=== PATIENT | male | born 1955 | race Caucasian/White ===

== ENCOUNTER 2018-04-09 22:21 | Inpatient (IN) | payer OTHER ==
[~2018-04-09] VITALS: Ht 172.7 cm; Wt 88.5 kg
--- NOTE | 2018-04-09 22:43 | ED DYSPNEA/ASTHMA COMPLAINT ---
History of Present Illness General Chief Complaint: Chest Pain Stated Complaint: COUGHING UP FLUID/PHLEGM,CP,SOB Source: patient, old records Exam Limitations: no limitations Vital Signs & Intake/Output Vital Signs & Intake/Output Vital Signs Date Time Temp Pulse Resp B/P B/P Pulse O2 O2 Flow FiO2 Mean Ox Delivery Rate 04/09 2330 98.4 102 21 136/95 92 Room Air 04/09 2246 92 04/09 2233 98.9 105 20 160/100 95 Allergies Coded Allergies: NO KNOWN ALLERGIES (01/21/12) Reconcile Medications Aspirin (Aspirin*) 81 MG TAB.CHEW 1 TAB PO DAILY HEART HEALTH (Reported) Atorvastatin Calcium 40 MG TABLET 1 TAB PO DAILY CHOLESTEROL (Reported) Azithromycin 500 MG TABLET 1 TAB PO DAILY BRONCHITIS . Budesonide/Formoterol Fumarate (Symbicort 160-4.5 Mcg Inhaler) 160 MCG-4.5 MCG/ ACTUATION HFA.AER.AD 2 PUF INH BID copd Losartan Potassium 50 MG TABLET 1 TAB PO DAILY BP (Reported) Omeprazole 40 MG CAPSULE.DR 1 CAP PO DAILY GERD . Prednisone 10 MG TABLET 1 TAB PO AD taper 4 TABS X3DAYS, 3 TABS X3DAYS, 2 TABS X3DAYS, 1 X3DAYS. Tiotropium Bovey (Spiriva) 18 MCG CAP.W.DEV 1 CAP INH DAILY COPD . Triage Note: RECEIVED 63 YO MALE WITH HX OF MN X 2, C/O PRODUCTIVE COUGH, WHEEZING AND SOB SINCE THURSDAY NIGHT. PT SEEN IN FAST TRACK THURSDAY AND PRESCRIBED AMOXICILLIN. PT REPORTS CHEST PAIN ACCROSS CHEST SINCE THURSDAY NIGHT. EXP WHEEZES BILATERALLY, O2 SATS 92%, MILD SHORTNESS O BREATH NOTED. Triage Nurses Notes Reviewed? yes HPI: 63M PMH COPD, HTN, history of chest pain with cardiac cath negative, presenting with 5 days of progressive shortness of breath, cough with thick yellow sputum, and pleuritic chest pain. Active smoker, 5cig/day. Symptoms have been worsening despite being started on Amoxicillin by PCP. Today is severely SOB, hoarse, pain with deep inspiration and cough, fever. He denies substernal chest pain, palpitations, lightheadedness, dizziness, sore throat, abdominal pain, diarrhea, dysuria. No sick contacts or recent travel. Past History Travel History Traveled to [place] past 21 day No Medical History Any Pertinent Medical History? see below for history Neurological: NONE EENT: NONE Cardiovascular: hypertension, hyperlipidemia, myocardial infarction Respiratory: NONE Gastrointestinal: NONE Hepatic: NONE Renal: NONE Musculoskeletal: NONE Psychiatric: NONE Endocrine: NONE Blood Disorders: NONE Cancer(s): NONE Tetanus Vaccine: 01/21/12 Surgical History Surgical History: ANGIOGRAM Psychosocial History What is your primary language R[place]an Tobacco Use: Quit >30 days ago Family History Hx Contributory? No Review of Systems Review of Systems Constitutional: Reports: no symptoms. EENTM: Reports: no symptoms. Respiratory: Reports: no symptoms. Cardiovascular: Reports: no symptoms. GI: Reports: no symptoms. Genitourinary: Reports: no symptoms. Musculoskeletal: Reports: no symptoms. Skin: Reports: no symptoms. Neurological/Psychological: Reports: no symptoms. Hematologic/Endocrine: Reports: no symptoms. Immunologic/Allergic: Reports: no symptoms. All Other Systems: Reviewed and Negative Physical Exam Physical Exam General Appearance: well developed/nourished, mild distress Head: atraumatic, normal appearance Eyes: Bilateral: normal appearance. Ears, Nose, Throat: hearing grossly normal Neck: normal inspection, full range of motion Respiratory: wheezing Cardiovascular: regular rate/rhythm Gastrointestinal: soft, non-tender Extremities: normal inspection, normal range of motion Neurologic/Psych: awake, alert, oriented x 3, normal mood/affect Skin: intact, normal color, warm/dry Core Measures ACS in differential dx? No CVA/TIA Diagnosis No Sepsis Present: No Sepsis Focused Exam Completed? No Progress Differential Diagnosis: asthma, AMI, bronchitis, costochondritis, CHF, COPD, pericarditis, pneumonia, unstable angina Plan of Care: Orders Procedure Date/time Status BLOOD CULTURE 04/09 2242 Active TROPONIN LEVEL 04/09 2242 Active COMPREHENSIVE METABOLIC PANEL 04/09 2242 Active CBC WITHOUT DIFFERENTIAL 04/09 2242 Complete B-TYPE NATRIURETIC PEP (BNP) 04/09 2242 Active EKG 04/09 2230 Active Laboratory Tests 04/09/18 2320: Anion Gap 12, Estimated GFR > 60, BUN/Creatinine Ratio 16.7, Glucose 121 H, Calcium 9.5, Total Bilirubin 0.4, AST 41, ALT 42, Alkaline Phosphatase 105, Troponin I Pending, Zpt-R-Xhunmuyoydg Pept Pending, Total Protein 7.1, Albumin 4.1, Globulin 3.0, Albumin/Globulin Ratio 1.4, CBC w Diff NO MAN DIFF REQ, RBC 5.34, MCV 91.8, MCH 30.7, MCHC 33.4, RDW 14.1, MPV 8.9, Gran % 75.3 H, Lymphocytes % 15.8 L, Monocytes % 5.4, Eosinophils % 3.4, Basophils % 0.1, Absolute Granulocytes 5.6, Absolute Lymphocytes 1.2, Absolute Monocytes 0.4, Absolute Eosinophils 0.3, Absolute Basophils 0 Microbiology 04/09 2320 BLOOD: Blood Culture - RECD 04/09 2310 BLOOD: Blood Culture - RECD Diagnostic Imaging: Viewed by Me: Radiology Read. Discussed w/RAD: Radiology Read. 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 Cough. Fever. COMPARISON: Chest x-ray 12/09/2016. TECHNIQUE: 2 views of the chest were obtained. FINDINGS: Hyperinflation of lungs with flattening of the diaphragm. There is no acute abnormality. No infiltrate. No pulmonary vascular congestion or pleural effusion. Heart size is normal. The cardiac and the mediastinal contours are normal. IMPRESSION: No acute abnormality. DICTATED BY: Simon Odonnell MD DATE/TIME DICTATED:04/09/182325 MANAGER SCIENTIFIC:RAJ DATE/TIME TRANSCRIBED:04/09/182325 CONFIDENTIAL, DO NOT COPY WITHOUT APPROPRIATE AUTHORIZATION. <Electronically signed in Other Vendor System> SIGNED BY: Simon Odonnell MD 04/09/182329 Initial ED EKG: normal sinus rhythm, no ST T wave changes Departure Departure Disposition: STILL A PATIENT Condition: Stable Clinical Impression Primary Impression: Community acquired pneumonia Qualifiers: Laterality: right Lung location: lower lobe of lung Qualified Code: J18.1 - Lobar pneumonia, unspecified organism Secondary Impressions: COPD exacerbation Referrals: Renny Millan DO (PCP/Family) Departure Forms: Customer Survey General Discharge Information Prescriptions: Current Visit Scripts Prednisone 1 TAB PO AD #30 TAB 4 TABS X3DAYS, 3 TABS X3DAYS, 2 TABS X3DAYS, 1 X3DAYS. Omeprazole 1 CAP PO DAILY #30 CAP . Tiotropium Bovey (Spiriva) 1 CAP INH DAILY #30 CAP . Azithromycin 1 TAB PO DAILY #3 TAB . Budesonide/Formoterol Fumarate (Symbicort 160-4.5 Mcg Inhaler) 2 PUF INH BID #1 INHAL Admission Note Spoke With: Doyle OQUENDO,[facility] Documentation of Exam: Documentation of any treatments & extenuating circumstances including Concerns Regarding Discharge (functional status, medication knowledge or non-compliance, living conditions, etc.) that warrant an admission rather than observation: PNEUMONIA, COPD EXACERBATION, HYPOXIA, WILL ADMIT FOR IV ANTIBIOTICS, IV STEROIDS, PULMONARY CONSULT Critical Care Note Critical Care Note Critical Care Time: non-applicable
[2018-04-09] MEDS ORDERED: ATORVASTATIN CA40 M1 PO (22:54)
[2018-04-09] MEDS ORDERED: LOSARTAN POTASS50 M1 PO (22:55)
[2018-04-09] MEDS ORDERED: AMOX-CLAV 875-1 EACH PO (22:55)
--- NOTE | 2018-04-09 23:30 | RADIOLOGY REPORT ---
EXAMINATION: XR CHEST CLINICAL INFORMATION: Left lower lobe bronchi. Cough. Fever. COMPARISON: Chest x-ray 12/09/2016. TECHNIQUE: 2 views of the chest were obtained. FINDINGS: Hyperinflation of lungs with flattening of the diaphragm. There is no acute abnormality. No infiltrate. No pulmonary vascular congestion or pleural effusion. Heart size is normal. The cardiac and the mediastinal contours are normal. IMPRESSION: No acute abnormality.
[2018-04-09 23:45] LABS: ABSOLUTE BASOPHIL COUNT 0 /CUMM (0.0-0.2); ABSOLUTE EOSINOPHIL COUNT 0.3 /CUMM (0.0-0.7); ABSOLUTE GRANULOCYTE CT 5.6 /CUMM (1.4-6.5); ABSOLUTE LYMPH COUNT 1.2 /CUMM (1.2-3.4); ABSOLUTE MONOCYTE COUNT 0.4 /CUMM (0.10-0.60); BASOPHIL % 0.1 % (0.0-2.0); EOSINOPHIL % 3.4 % (0-5); GRANULOCYTE % 75.3 % (42.2-75.2); MEAN CORPUSCULAR HGB 30.7 PG (27.0-31.0); MEAN CORPUSCULAR HGB CONC 33.4 G/DL (33.0-37.0); MEAN CORPUSCULAR VOLUME 91.8 FL (80.0-94.0); MEAN PLATELET VOLUME 8.9 FL (7.4-10.4); PLATELET COUNT 242 /CUMM (130-400); RBC DISTRIBUTION WIDTH 14.1 % (11.5-14.5); RED BLOOD CELL CT 5.34 /CUMM (4.70-6.10); WHITE BLOOD CELL COUNT 7.4 /CUMM (4.8-10.8)
--- NOTE | 2018-04-10 00:28 | History & Physical ---
Gerson Nguyen MD 04/10/18 0027: General Information and HPI MD Statement: I have seen and personally examined FISH FLETCHER and documented this H&P. The patient is a 63 year old M who presented with a patient stated chief complaint of cough and shortness of breath. Source of Information: patient, family, old records Exam Limitations: no limitations History of Present Illness: 63 year old male with past medical history significant for moderate to severe COPD not on home oxygen (PFT 2012 Dr. Brown), CAD with h/o silent AL, reportedly negative cardiac catheterization (nonobstructive CAD?), abnormal stress test in 2015 with diffuse hypokinesis, HTN, HLD, and smoking presents with complaints of worsening upper respiratory infection with productive cough and negative chest x-ray, admitted for COPD exacerbation. The patient's symptoms first began approximately one week ago as a scratchy throat and over next couple day worsened to a prooductive cough with thick yellow sputum. The patient took Coricidin otc at home without improvement and was placed on Augmentin three days prior to arrival. His sympytoms continued to worsens despite antibiotics and he had worsening exertional shortness of breath. He also developed fevers and chills. The patient states he gets exertional frontal chest pain he describes as sharp and burning, non radiating, and that is worsening recently with his cough and dyspnea. He also reports antibiotic associated diarrhea, approximately four episodes a day. He is noncompliant with all his home medications and a current smoker. He typically smokes a pack a day but since he has become sick, he cut down to 1/4 pack per day. His and daughter were both sick with similiar symptoms prior to him, both have improved, one on and the other without antibiotic treatment. In the ED, he was treated with aspirin, solumedrol, and nebulized albuterol and ipatropium and admitted for COPD exacerbation. Allergies/Medications Allergies: Coded Allergies: NO KNOWN ALLERGIES (01/21/12) Home Med list Amoxicillin/Clavulanate Potass (Amox-Clav 875-125 MG Tablet) 875 MG-125 MG TABLET 1 TAB PO BID ABX (Reported) Atorvastatin Calcium 40 MG TABLET 1 TAB PO DAILY CHOLESTEROL (Reported) Losartan Potassium 50 MG TABLET 1 TAB PO DAILY BP (Reported) Compliance With Home Meds: POOR Past History Travel History Traveled to [place] past 21 day No Medical History Neurological: NONE EENT: NONE Cardiovascular: hypertension, hyperlipidemia, myocardial infarction Respiratory: NONE Gastrointestinal: NONE Hepatic: NONE Renal: NONE Musculoskeletal: NONE Psychiatric: NONE Endocrine: NONE Blood Disorders: NONE Cancer(s): NONE Tetanus Vaccine: 01/21/12 Surgical History Surgical History: hernia repair-inguinal, ANGIOGRAM Past Family/Social History Family History Relations & Conditions if any MOTHER FH: emphysema Psychosocial History Smoking Status: Current Everyday Smoker ETOH Use: heavy use Illicit Drug Use: denies illicit drug use Functional Ability ADLs Independent: dressing, eating, toileting, bathing. Ambulation: independent IADLs Independent: shopping, housework, finances, food prep, telephone, transportation , medication admin. Review of Systems Review of Systems Constitutional: Reports: chills, fever, malaise. EENTM: Reports: throat pain. Cardiovascular: Reports: chest pain. Denies: palpitations, peripheral edema. Respiratory: Reports: cough, orthopnea, short of breath, sputum production, wheezing. GI: Reports: diarrhea. Denies: abdominal pain, nausea, vomiting. Genitourinary: Denies: dysuria, frequency. Musculoskeletal: Reports: no symptoms. Skin: Reports: no symptoms. Neurological/Psychological: Reports: no symptoms. Hematologic/Endocrine: Reports: no symptoms. Immunologic/Allergic: Reports: no symptoms. All Other Systems: Reviewed and Negative Exam & Diagnostic Data Last 24 Hrs of Vital Signs/I&O Vital Signs Date Time Temp Pulse Resp B/P B/P Pulse O2 O2 Flow FiO2 Mean Ox Delivery Rate 04/10 0218 98.7 83 20 134/76 93 Room Air 04/10 0109 99.0 87 18 137/100 95 Room Air 04/09 2330 98.4 102 21 136/95 92 Room Air 04/09 2246 92 / 2233 98.9 105 20 160/100 95 Intake & Output 04/10 0800 04/10 0000 04/09 1600 Intake Total 0 Output Total Balance 0 Intake, Oral 0 Patient 86.183 kg 85.729 kg Weight Weight Reported by Patient Measurement Method Physical Exam General Appearance Alert, Oriented X3, Cooperative, No Acute Distress Cardiovascular Regular Rate, Normal S1, Normal S2, No Murmurs Lungs diffuse expiratory wheezing Abdomen Normal Bowel Sounds, Soft, No Tenderness, large midline ventral hernia Extremities No Clubbing, No Cyanosis, No Edema, Normal Pulses Last 24 Hrs of Labs/Ag: Laboratory Tests 04/09/180: Anion Gap 12, Estimated GFR > 60, BUN/Creatinine Ratio 16.7, Glucose 121 H, Calcium 9.5, Total Bilirubin 0.4, AST 41, ALT 42, Alkaline Phosphatase 105, Troponin I 0.02, Dby-A-Csrvgpquyjk Pept 243 H, Total Protein 7.1, Albumin 4.1, Globulin 3.0, Albumin/Globulin Ratio 1.4, CBC w Diff NO MAN DIFF REQ, RBC 5.34, MCV 91.8, MCH 30.7, MCHC 33.4, RDW 14.1, MPV 8.9, Gran % 75.3 H, Lymphocytes % 15.8 L, Monocytes % 5.4, Eosinophils % 3.4, Basophils % 0.1, Absolute Granulocytes 5.6, Absolute Lymphocytes 1.2, Absolute Monocytes 0.4, Absolute Eosinophils 0.3, Absolute Basophils 0 Microbiology 04/09 2320 BLOOD: Blood Culture - RECD 04/09 2310 BLOOD: Blood Culture - RECD Diagnostic Data EKG Results sinus rhythm with old LBBB CXR Results Hyperinflation of lungs with flattening of the diaphragm. There is no acute abnormality. No infiltrate. No pulmonary vascular congestion or pleural effusion. Heart size is normal. The cardiac and the mediastinal contours are normal. Assessment/Plan Assessment: 63 year old male with past medical history significant for moderate to severe COPD not on home oxygen (PFT 2012 Dr. Brown), CAD with h/o silent AL, reportedly negative cardiac catheterization (nonobstructive CAD?), abnormal stress test in 2014 with diffuse hypokinesis, HTN, HLD, and smoking presents with complaints of worsening upper respiratory infection with productive cough and negative chest x-ray, admitted for COPD exacerbation. COPD exacerbation: Recent sick contacts Afebrile without leukocytosis Symptoms worsening (cough/exertional dyspnea) despite outpatient amoxicillin Chest x-ray hyperinflation emphysematous changes without infiltrate/pneumonia Received solumedrol 125mg in the ED, continue 40mg iv q8h TRC evaluation Sputum culture Azithromycin 500mg x 5 days Continue nebulized albuterol and ipatropium Currently not hypoxic on room air Start spiriva, symbicort and mucinex 600mg po bid Counseled on smoking cessation, offered nicotine replacement therapy Consult pulmonology with Dr. Brown CAD with angina: Patient has chronic exertional dyspnea and frontal chest pain, currently exacerbated by his URI and cough First troponin negative, check second troponin and EKG, although ischemic changes are difficult to detect given his LBBB Exercise nuclear stress test/Echocardiogram 2014 Abnormal study demonstrating fixed perfusion abnormalities as described above involving the inferior, anteroseptal, and apical ponce. No reversible perfusion abnormalities are noted. There is diffuse left ventricular hypokinesis which is most severe in the regions of the fixed perfusion abnormalities. The left ventricular chamber is mildly dilated and the left ventricular ejection fraction is moderately depressed. Normal left ventricular wall thickness. Left ventricular ejection fraction is estimated at 40-45%. Abnormal septal motion consistent with conduction defect. Stage 1 diastolic dysfunction. Mild left atrial dilatation. Patient has poor compliance and is not on optimal medical therapy Restart losartan, aspirin, and atorvastatin Patient should be started on beta shahla and aldactone given his exertional symptoms Consider long acting nitrate Reports orthopnea, proBNP 243, no pulmonary edema on chest x-ray Consider cardiology consultation if chest pain continues or develops elevated troponin HTN: Continue losartan HLD: Continue atorvastatin Heart healthy diet DVT ppx-ALPS, lovenox 40mg subcutaneous daily DNR/DNI As Ranked By This Provider Problem List: 1. COPD exacerbation Core Measures/Misc (07/19) Acute Coronary Syndrome ACS Diagnosis: No Congestive Heart Failure Congestive Heart Failure Diagnosis No Cerebrovascular Accident CVA/TIA Diagnosis: No VTE (View Protocol) VTE Risk Factors Age>40 No Mechanical VTE Prophylaxis d/t N/A MechProphylax Ordered No VTE Pharm Prophylaxis d/t NA PharmProphylax ordered Sepsis (View protocol) Sepsis Present: No If YES complete Sepsis Event Note If YES complete Sepsis Event Note Alethea OQUENDO,Joleen 04/10/18 0029: Core Measures/Misc (07/19) Sepsis (View protocol) If YES complete Sepsis Event Note If YES complete Sepsis Event Note Resident Review Statement Resident Statement: examined this patient, discussed with summer internship, agreed with summer internship, discussed with family, reviewed EMR data (avail), discussed with nursing , discussed with case mgmt, reviewed images, amended to note Other Findings: Patient is a 63 YO M with PMH significant for HTN, HLD, AL (EF 40-45% ), abnormal stress test 2014 with hypokinesis, COPD (diagnosed 2012) presented to [facility] with complaints of productive cough, wheezing, SOB since last 5 days. Evaluated 3days ago and prescribed amoxicillin, with eventual progression of the illness. He started experiencing productive phlegm with severe shortness of breath, hoarseness of voice today prompting him to come to ER. He smokes 1pack per day reduced to 5 cigars per day for the past few days. Not compliant with medications/follow up. VS at presentation Tmax 99, HR 105, BP 160/100mmHg, 92 on RA. Physical exam significant for diffuse wheezing, normal heart sounds, distended abdomen with hepatosplenomegaly. Labs are significant for lymphocytes, chem panel unremarkable, trop 0.02, UA pending. CXR shows hyperinflation of lungs with flattening of diaphragm. Problem list 1. COPD exacerbation - viral illness precipitating 2. HTN 3. AL in the past with Low EF and abnormal stress test 4. Regular alcohol consumption 5. Active smoking 6. HLD Plan Admit to general medicine floor COPD exacerbation IV steroids, IV azithromycin, follow up cultures. Consult . Smoking cessation counselling. Nicotine patch. Mucinex BID. Stable angina Patient had h/o AL and abnormal stress test. follows , very noncomplaint. Not taking any meds. He had chest pain - burning like, worse with exertion at baseline. HTN: Continue Losartan HLD: continue Atrovastatin Regular alcohol consumption - Diagnostic CIWA, if high start ativan protocol Smoking: Nicotine patch. DVT prophylaxis SC heparin code status DNR/DNI Doyle OQUENDO, [facility] 04/10/18 0322: Core Measures/Misc (07/19) Sepsis (View protocol) If YES complete Sepsis Event Note If YES complete Sepsis Event Note Attending MD Review Statement Attending Statement Attending MD Statement: examined this patient, discuss w/resident/PA/FISCAL SERVICES DIRECTOR, agreed w/resident/PA/FISCAL SERVICES DIRECTOR, discussed with family, reviewed images, amended to note Attending Assessment/Plan: 63 yo M with h/o HTN, AL x 2, current smoker, COPD, chronic systolic and diastolic heart failure, is here for evaluation of productive cough, exertional dyspnea and wheezing for the past 6 days. He went to an Urgent care 2 days ago, was prescribed Amoxicillin however his dyspnea worsened and he also developed diarrhea. He reports sharp pain under bilateral breast with deep inspiration and coughing. Sujective fevers+. No sick contacts or recent travel. Patient had a PFT in 2012 which showed moderate to severe obstructive lung disease with a partially reversible component, mild airtrapping and hyperinflation. He used to follow with Dr. Kothari but has not done so in over 2 yrs. He is noncompliant with his medications as well. He has a h/o AL x 2, underwent cardiac cath which he reports was normal, possible nonobstructive CAD. He had stress test done in 2014 which showed fixed perfusion abnormalities, with diffuse left ventricular hypokinesis, left ventricular chamber mildly dilated and left ventricular systolic fraction is moderately depressed. Patient is supposed to follow up with Dr. Vasques. Patient continues to smoke cigarettes. He also drinks about 4-6 beers atleast 5 times a week. He has never been through a withdrawal or DT's. Vitals: Tmax 99, HR 80-100's, BP 136/95, sats 92-95% RA. Exam: AAO, in mild respiratory distress, mucosa moist, Chest b/l diffuse wheezing with prolonged expiratory phase, Heart S1S2 regular, ?systolic murmur, Abd soft, NT, LE no edema. Labs: no leukocytosis, glucose 121, trop 0.02. CXR: hyperinflation of lungs with flattening of the diaphragm, no consolidation. EKG: sinus tachycardia, LBBB (old), Qtc 466, no acute changes. Echo (2014): EF 40-45%, stage 1 diastolic dysfunction, abnormal septal motion consistent with conduction defect. Assessment and plan: 1. Acute bacterial bronchitis 2. COPD with acute exacerbation 3. Smoker 4. History of AL with ?normal cardiac cath 5. History of congestive heart failure 6. Alcohol dependence 7. Medication noncompliance - Admit to General medicine - TRC nebs scheduled and PRN albuterol with ipratropium - Sputum culture - IV solumedrol 40 Q8 followed by prednisone taper - IV azithro for 5 days - Pulm consult (Dr. Kothari) - Smoking cessation counseling, nicotine patch - Add mucinex BID - Resume aspirin, losartan and atorvastatin - Repeat EKG and troponin in AM - Outpatient follow up with Dr. Vasques (Cardiology) - Check lipid panel, TSH, free T4, HbA1c - Maintain on CIWA protocol, no ativan for now DVT ppx Lovenox. DNR/I.
--- NOTE | 2018-04-10 01:53 | Admission Certification ---
Admission Certification Certification Statement - As attending physician, I certify that at the time of - admission, based on clinical presentation, severity of - symptoms, need for further diagnostic testing and - therapeutic interventions, and risk of adverse outcomes - without in-hospital treatment, in my clinical assessment, - this patient requires an acute hospital stay for a minimum - of two nights or longer. I have also considered psychsocial - factors such as support system, advanced age, financial - issues, cognitive issues, and failed out-patient treatments, - past re-admission history, safety of patient, and lack of - compliance as applicable. Specific rationale supporting this admission is: COPD exacerbation
[2018-04-10 02:18] VITALS: BP 134/76
[2018-04-10 06:20] VITALS: BP 140/82
[2018-04-10 08:36] LABS: ABSOLUTE BASOPHIL COUNT 0 /CUMM (0.0-0.2); ABSOLUTE EOSINOPHIL COUNT 0 /CUMM (0.0-0.7); ABSOLUTE GRANULOCYTE CT 5.6 /CUMM (1.4-6.5); ABSOLUTE LYMPH COUNT 0.4 /CUMM (1.2-3.4); ABSOLUTE MONOCYTE COUNT 0 /CUMM (0.10-0.60); BASOPHIL % 0 % (0.0-2.0); EOSINOPHIL % 0.1 % (0-5); GRANULOCYTE % 92.4 % (42.2-75.2); HEMATOCRIT 45.5 % (42-52); MEAN CORPUSCULAR HGB 30.6 PG (27.0-31.0); MEAN CORPUSCULAR HGB CONC 33.6 G/DL (33.0-37.0); MEAN PLATELET VOLUME 9.5 FL (7.4-10.4); PLATELET COUNT 214 /CUMM (130-400); RBC DISTRIBUTION WIDTH 14.1 % (11.5-14.5)
--- NOTE | 2018-04-10 09:13 | PN- Att Addend ---
Attending Addendum Attending Brief Note Patient seen and examined. Lying in bed not in acute distress. Continues complain of shortness of breath or cough. Reports small improvement compared to presentation. Admits to cough. Denies chest pain. Denies palpitations. Vital Signs Date Time Temp Pulse Resp B/P B/P Pulse O2 O2 Flow FiO2 Mean Ox Delivery Rate 04/10 825 90 150/80 / 0620 98.4 75 20 140/82 92 Room Air 04/10 0218 98.7 83 20 134/76 93 Room Air 04/10 0109 99.0 87 18 137/100 95 Room Air 04/09 2330 98.4 102 21 136/95 92 Room Air 04/09 2246 92 04/09 2233 98.9 105 20 160/100 95 General appearance: Well-developed and not in any acute distress. HEENT: Anicteric, no pallor, pupils equal and reactive. Neck: Supple with no jugular venous distention. Heart: S1-S2 regular with no audible murmur. Lungs: Diminished breath sounds bilaterally with diffuse rhonchi. Abdomen: Nondistended with normal bowel sounds. Soft, nontender with no palpable masses. Extremities: No pedal edema. No cyanosis. Skin: Intact Laboratory Tests 04/10/18 0712: Anion Gap 11, Estimated GFR > 60, BUN/Creatinine Ratio 16.3, Troponin I 0.03, CBC w Diff Pending, WBC Pending, RBC Pending, Hgb Pending, Hct Pending, MCV Pending, MCH Pending, MCHC Pending, RDW Pending, Plt Count Pending, MPV Pending 04/10/18 0530: Urine Color YEL, Urine Clarity CLEAR, Urine pH 6.0, Ur Specific [place] 1.015, Urine Protein NEG, Urine Ketones NEG, Urine Nitrite NEG, Urine Bilirubin NEG, Urine Urobilinogen 0.2, Ur Leukocyte Esterase TRACE H, Ur Microscopic SEDIMENT EXAMINED, Urine RBC RARE, Urine WBC 3-5 H, Hyaline Casts 1-3 H, Granular Casts RARE H, Urine Mucus MOD H, Micro UA Comment CELLULAR CASTS H, Urine Hemoglobin NEG, Urine Glucose NEG 04/09/18 2320: Anion Gap 12, Estimated GFR > 60, BUN/Creatinine Ratio 16.7, Glucose 121 H, Calcium 9.5, Total Bilirubin 0.4, AST 41, ALT 42, Alkaline Phosphatase 105, Troponin I 0.02, Dis-Z-Hnshzvqthlb Pept 243 H, Total Protein 7.1, Albumin 4.1, Globulin 3.0, Albumin/Globulin Ratio 1.4, CBC w Diff NO MAN DIFF REQ, RBC 5.34, MCV 91.8, MCH 30.7, MCHC 33.4, RDW 14.1, MPV 8.9, Gran % 75.3 H, Lymphocytes % 15.8 L, Monocytes % 5.4, Eosinophils % 3.4, Basophils % 0.1, Absolute Granulocytes 5.6, Absolute Lymphocytes 1.2, Absolute Monocytes 0.4, Absolute Eosinophils 0.3, Absolute Basophils 0 Microbiology 04/09 2320 BLOOD: Blood Culture - RECD 04/09 2310 BLOOD: Blood Culture - RECD Problems: 1. COPD exacerbation 2. Coronary artery disease Plan: -Continue bronchodilator therapy. Continue current dose of systemic steroid therapy. The shows clinical improvement tomorrow is dose of Solu-Medrol may be decreased. -Transition to oral azithromycin -Continue cardiac regimen of ARB and statin. Add aspirin to his regimen. -Mobilize patient as tolerated.
--- NOTE | 2018-04-10 10:07 | Cons- Pulmonary ---
General Information and HPI Consulting Request Date of Consult: 04/10/18 Requested By: Kathie Reason for Consult: Exacerbation of COPD History of Present Illness: Patient is 63-year-old actively smoking with COPD admitted with exacerbation after exposure to sick family members. He developed increasing cough productive of slightly discolored sputum without hemoptysis or chest pain and presented with shortness of breath. He was continuing to smoke. Chest x-ray shows no evidence of pneumonia Allergies/Medications Allergies: Coded Allergies: NO KNOWN ALLERGIES (01/21/12) Home Med List: Amoxicillin/Clavulanate Potass (Amox-Clav 875-125 MG Tablet) 875 MG-125 MG TABLET 1 TAB PO BID ABX (Reported) Atorvastatin Calcium 40 MG TABLET 1 TAB PO DAILY CHOLESTEROL (Reported) Losartan Potassium 50 MG TABLET 1 TAB PO DAILY BP (Reported) Review of Systems Review of Systems Constitutional: Denies: chills, fever. Cardiovascular: Denies: chest pain, peripheral edema. Respiratory: Reports: cough, short of breath, sputum production, wheezing. GI: Denies: abdominal pain, diarrhea, melena. Past History Travel History Traveled to [place] past 21 day No Medical History Blood Transfusion Hx: No Neurological: NONE EENT: NONE Cardiovascular: hypertension, hyperlipidemia, myocardial infarction Respiratory: NONE Gastrointestinal: NONE Hepatic: NONE Renal: NONE Musculoskeletal: NONE Psychiatric: NONE Endocrine: NONE Blood Disorders: NONE Cancer(s): NONE Surgical History Surgical History: hernia repair-inguinal, ANGIOGRAM Family History Relations & Conditions If Any: MOTHER FH: emphysema Psychosocial History Where Do You Live? Home Smoking Status: Current Everyday Smoker ETOH Use: heavy use Illicit Drug Use: denies illicit drug use Functional Ability ADLs Independent: dressing, eating, toileting, bathing. Ambulation: independent IADLs Independent: shopping, housework, finances, food prep, telephone, transportation , medication admin. Exam & Diagnostic Data Last 24 Hrs of Vital Signs/I&O Vital Signs Date Time Temp Pulse Resp B/P B/P Pulse O2 O2 Flow FiO2 Mean Ox Delivery Rate 04/10 0825 90 150/80 04/10 0620 98.4 75 20 140/82 92 Room Air 04/10 0218 98.7 83 20 134/76 93 Room Air 04/10 0109 99.0 87 18 137/100 95 Room Air 04/09 2330 98.4 102 21 136/95 92 Room Air 04/09 2246 92 04/09 2233 98.9 105 20 160/100 95 Intake & Output 04/10 1600 04/10 0800 04/10 0000 Intake Total 200 0 Output Total Balance 200 0 Intake, Oral 200 0 Patient 190 lb 189 lb Weight Weight Reported by Patient Measurement Method Oxygen saturation room air 92% HNT exam shows no adenopathy exam of his chest shows somewhat diminished breath sounds there are rare expiratory wheezes cardiac exam shows regular S1 and S2 without murmurs abdomen is soft nontender extremities without edema Last 48 Hrs of Labs/Ag: Laboratory Tests 04/10/18 0712: Anion Gap 11, Estimated GFR > 60, BUN/Creatinine Ratio 16.3, Troponin I 0.03, CBC w Diff Pending, WBC Pending, RBC Pending, Hgb Pending, Hct Pending, MCV Pending, MCH Pending, MCHC Pending, RDW Pending, Plt Count Pending, MPV Pending 04/10/18 0530: Urine Color YEL, Urine Clarity CLEAR, Urine pH 6.0, Ur Specific [place] 1.015, Urine Protein NEG, Urine Ketones NEG, Urine Nitrite NEG, Urine Bilirubin NEG, Urine Urobilinogen 0.2, Ur Leukocyte Esterase TRACE H, Ur Microscopic SEDIMENT EXAMINED, Urine RBC RARE, Urine WBC 3-5 H, Hyaline Casts 1-3 H, Granular Casts RARE H, Urine Mucus MOD H, Micro UA Comment CELLULAR CASTS H, Urine Hemoglobin NEG, Urine Glucose NEG 04/09/18 2320: Anion Gap 12, Estimated GFR > 60, BUN/Creatinine Ratio 16.7, Glucose 121 H, Calcium 9.5, Total Bilirubin 0.4, AST 41, ALT 42, Alkaline Phosphatase 105, Troponin I 0.02, Mcd-Z-Govsibvezlf Pept 243 H, Total Protein 7.1, Albumin 4.1, Globulin 3.0, Albumin/Globulin Ratio 1.4, CBC w Diff NO MAN DIFF REQ, RBC 5.34, MCV 91.8, MCH 30.7, MCHC 33.4, RDW 14.1, MPV 8.9, Gran % 75.3 H, Lymphocytes % 15.8 L, Monocytes % 5.4, Eosinophils % 3.4, Basophils % 0.1, Absolute Granulocytes 5.6, Absolute Lymphocytes 1.2, Absolute Monocytes 0.4, Absolute Eosinophils 0.3, Absolute Basophils 0 Assessment/Plan Impression/Plan: 63-year-old gentleman with significant COPD admitted with exacerbation. There is no evidence to suggest concomitant ischemic heart disease Recommendations: Continue IV steroids and nebulized bronchodilators. Continue Mucinex. Obtain sputum C&S. he has been counseled regarding the need for smoking cessation Consult Acknowledgment - Thank you for your consult request.
[2018-04-10 14:18] VITALS: BP 130/80
[2018-04-10 21:46] VITALS: BP 148/83
[2018-04-11 05:41] VITALS: BP 114/85
--- NOTE | 2018-04-11 08:48 | PN- Housestaff ---
Hanna OQUENDO,Lisbeth 04/11/18 0847: Subjective Follow-up For: COPD exacerbation - viral illness precipitating Subjective: Patient was seen and examined today. Reports continued wheezing. States it is improving. Denies chest pain, palpitations, shortness of breath. Patient has been walking around without significant respiratory exertion. No acute events overnight. Review of Systems Constitutional: Reports: see HPI. Objective Last 24 Hrs of Vital Signs/I&O Vital Signs Date Time Temp Pulse Resp B/P B/P Pulse O2 O2 Flow FiO2 Mean Ox Delivery Rate 04/11 1358 97.9 79 20 136/70 95 Room Air 04/11 0836 94 Room Air Room Air 04/11 0749 97.5 75 24 114/85 04/11 0541 97.5 75 24 114/85 96 Room Air 04/10 2146 98.5 98 20 148/83 92 04/10 1912 95 Room Air Intake & Output 04/11 1600 04/11 0800 04/11 0000 Intake Total 800 300 300 Output Total 400 350 Balance 400 -50 300 Intake, Oral 800 300 300 Output, Urine 400 350 Patient 195 lb Weight Physical Exam General Appearance: Alert, Cooperative, No Acute Distress Skin Temp/Moisture Exam: Warm/Dry HEENT: Atraumatic, Mucous Membr. moist/pink Cardiovascular: Regular Rate, Normal S1, Normal S2 Lungs: bilateral expiratory wheezing heard in all lung rubio Abdomen: Normal Bowel Sounds, Soft, No Tenderness Extremities: No Clubbing, No Cyanosis, No Edema, Normal Pulses, No Tenderness/ Swelling Current Medications: Current Medications Sig/Boom Start time Last Medication Dose Route Stop Time Status Admin Albuterol Sulfate 3 ML BID 04/10 1234 AC 04/11 INH 0835 Aspirin 81 MG DAILY 04/10 900 AC 04/11 PO 0749 Atorvastatin Calcium 40 MG 1700 04/10 1700 AC 04/10 PO 1722 Azithromycin 500 MG DAILY 04/11 900 AC 04/11 PO 0750 Azithromycin 500 MG DAILY 04/10 900 DC 04/10 Sodium Chloride 250 ML IV 08 Guaifenesin 600 MG Q12 04/10 900 AC PO Heparin Sodium 5,000 UNIT Q8 04/10 600 AC (Porcine) SC Losartan Potassium 50 MG DAILY 04/10 900 AC 04/11 PO 0749 Methylprednisolone 40 MG Q12 04/11 2100 UNVr IV 04/11 210 Methylprednisolone 40 MG Q8 04/10 600 DC 04/11 IV 1315 Nicotine 14 MG DAILY 04/10 900 AC TOP Prednisone 40 MG DAILY 04/12 900 UNVr PO Last 24 Hrs of Lab/Ag Results Last 24 Hrs of Labs/Mics: Microbiology 04/10 144 LOWER RESP: Respiratory Culture - CAN Cancelled: SPECIMEN NOT RECEIVED IN LABORATORY 04/10 1445 LOWER RESP: Gram Stain - CAN Cancelled: SPECIMEN NOT RECEIVED IN LABORATORY Assessment/Plan Assessment: Patient is a 63 YO M with PMH significant for HTN, HLD, W[place] (EF 40-45% ), abnormal stress test 2014 with hypokinesis, COPD (diagnosed 2012) presented to [facility] with complaints of productive cough, wheezing, SOB since last 5 days. Evaluated 3days ago and prescribed amoxicillin, with eventual progression of the illness. He started experiencing productive phlegm with severe shortness of breath, hoarseness of voice today prompting him to come to ER. He smokes 1pack per day reduced to 5 cigars per day for the past few days. Not compliant with medications/follow up. VS at presentation Tmax 99, HR 105, BP 160/100mmHg, 92 on RA. Physical exam significant for diffuse wheezing, normal heart sounds, distended abdomen with hepatosplenomegaly. Labs are significant for lymphocytes, chem panel unremarkable, trop 0.02, UA pending. CXR shows hyperinflation of lungs with flattening of diaphragm. Problem list 1. COPD exacerbation - viral illness precipitating 2. HTN 3. [place] in the past with Low EF and abnormal stress test 4. Regular alcohol consumption 5. Active smoking 6. HLD Plan Admit to general medicine floor COPD exacerbation Appears to be improving today. IV Solu-medrol dose decreased to 40mg IV q12 hours today. Will start on PO prednisone tomorrow Continue IV azithromycin, follow up cultures. Consult Dr. Brown Smoking cessation counselling Nicotine patch Mucinex BID Stable angina Patient had h/o [place] and abnormal stress test. follows , very noncomplaint. Not taking any meds. He had chest pain - burning like, worse with exertion at baseline. HTN: Continue Losartan HLD: continue Atrovastatin Regular alcohol consumption - Diagnostic CIWA, if high start ativan protocol Smoking: Nicotine patch. DVT prophylaxis SC heparin code status DNR/DNI Problem List: 1. COPD exacerbation Pain Ratin Pain Location: n/a Pain Goal: Remain pain free Pain Plan: n/a Tomorrow's Labs & Rationales: none Kd Morrow MD 04/11/18 1056: Attending MD Review Statement Attending Statement Attending MD Statement: examined this patient, discuss w/resident/PA/CYBER THREAT ANALYST, agreed w/resident/PA/CYBER THREAT ANALYST, reviewed EMR data (avail), discussed with nursing, amended to note Attending Assessment/Plan: Patient seen and examined. No issues overnight reported by nursing staff. Remains afebrile and hemodynamically stable. Resting comfortably and not in any acute distress. Reports feeling significantly better compared to presentation. Afebrile hemodynamically stable. No requiring oxygen supplementation. On examination he has adequate entry bilaterally with no added sounds. Given his significant improvement is Solu-Medrol may be discontinued after receiving a second dose today. Begin patient on oral prednisone taper tomorrow anticipate discharge home tomorrow with outpatient follow-up with the pulmonology service. Based on the gold system patient is at least stage C given his hospitalization and symptomatology with moderate exertion. He should be started on Spiriva at the time of discharge. Smoking cessation should be reinforced at the time of discharge.
--- NOTE | 2018-04-11 10:10 | PN- Pulmonary ---
Subjective HPI/Critical Care Issues: Patient feels improved and comfortable on room air Objective Current Medications: Current Medications Sig/Boom Start time Last Medication Dose Route Stop Time Status Admin Albuterol Sulfate 3 ML BID 04/10 1234 AC 04/11 INH 0835 Aspirin 81 MG DAILY 04/10 0900 AC 04/11 PO 0749 Atorvastatin Calcium 40 MG 1700 04/10 1700 AC 04/10 PO 1722 Azithromycin 500 MG DAILY 04/11 900 AC 04/11 PO 0750 Azithromycin 500 MG DAILY 04/10 900 DC 04/10 Sodium Chloride 250 ML IV 0825 Guaifenesin 600 MG Q12 04/10 900 AC PO Heparin Sodium 5,000 UNIT Q8 04/10 600 AC (Porcine) SC Losartan Potassium 50 MG DAILY 04/10 900 AC 04/11 PO 0749 Methylprednisolone 40 MG Q8 04/10 06 AC 04/11 IV 0557 Nicotine 14 MG DAILY 04/10 900 AC TOP Vital Signs & I&O Last 24 Hrs of Vitals and I&O: Vital Signs Date Time Temp Pulse Resp B/P B/P Pulse O2 O2 Flow FiO2 Mean Ox Delivery Rate 04/11 0836 94 Room Air Room Air 04/11 0749 97.5 75 24 114/85 04/11 0541 97.5 75 24 114/85 96 Room Air 04/10 2146 98.5 98 20 148/83 92 04/10 1912 95 Room Air 04/10 1418 98.4 98 17 130/80 92 Room Air 04/10 1228 Room Air Intake & Output 04/11 1600 04/11 0800 06/ 0000 Intake Total 300 300 Output Total 350 Balance -50 300 Intake, Oral 300 300 Output, Urine 350 Patient 195 lb Weight Oxygen saturation 94% exam of his chest shows somewhat diminished breath sounds there are no wheezes heard cardiac exam shows a regular S1 and S2 without murmurs Impression/Plan Impression/Plan Impression/Plan: 63-year-old admitted with exacerbation of COPD which is improved Recommendations: DC IV steroids later today begin oral prednisone. Assess saturations with ambulation. Anticipate discharge tomorrow
[2018-04-11 13:58] VITALS: BP 136/70
--- NOTE | 2018-04-11 18:30 | Patient Discharge Instructions ---
Discharge Instructions General Discharge Information You were seen/treated for: COPD Exacerbation Special Instructions: 1. Follow up with your pcp within 1 week of discharge 2. Please take medications as prescribed Acute Coronary Syndrome Inclusion Criteria At DC or during hospital stay patient has or had the following: ACS DIAGNOSIS No Discharge Core Measures Meds if any: Prescribed or Continued at Discharge Meds if any: NOT Prescribed or Continued at Discharge Congestive Heart Failure Inclusion Criteria At DC or during hospital stay patient has or had the following: CHF DIAGNOSIS No Discharge Core Measures Meds if any: Prescribed or Continued at Discharge Meds if any: NOT Prescribed or Continued at Discharge Cerebrovascular accident Inclusion Criteria At DC or during hospital stay patient has or had the following: CVA/TIA Diagnosis No Discharge Core Measures Meds if any: Prescribed or Continued at Discharge Meds if any: NOT Prescribed or Continued at Discharge Venous thromboembolism Inclusion Criteria VTE Diagnosis No VTE Type NONE VTE Confirmed by (Test) NONE Discharge Core Measures - Per Current guidelines, there needs to be overlap - treatment for the first 5 days of Warfarin therapy. - If discharged on Warfarin prior to 5 days of - overlap therapy, the patient will need to be - assessed for post discharge needs including - *Post discharge parental anticoagulation - *Warfarin and/or parental anticoagulation education - *Follow up date to check INR post discharge At least 5 days overlap therapy as Inpatient No Meds if any: Prescribed or Continued at Discharge Note: Overlap Therapy is Warfarin and Anticoagulant Meds if any: NOT Prescribed or Continued at Discharge
[2018-04-11 22:12] VITALS: BP 128/84
[2018-04-12 06:00] VITALS: BP 134/86
--- NOTE | 2018-04-12 07:05 | PN- Housestaff ---
Wendy OQUENDO,Gerson 04/12/18 0705: Subjective Follow-up For: COPD exacerbation Subjective: afebrile persistent cough, sputum now clear, less sputum production exertional dyspnea is improved, patient ambulating well without symptomatic dyspnea feeling well, stable for discharge Review of Systems Constitutional: Reports: see HPI. Objective Last 24 Hrs of Vital Signs/I&O Vital Signs Date Time Temp Pulse Resp B/P B/P Pulse O2 O2 Flow FiO2 Mean Ox Delivery Rate 04/12 1055 93 Room Air 04/12 0829 80 134/86 04/12 0800 94 Room Air 04/12 06 98.4 80 16 134/86 94 Room Air 04/11 2212 98.1 86 20 128/84 96 04/11 2140 95 Room Air Room Air 04/11 1600 Room Air 04/11 1358 97.9 79 20 136/70 95 Room Air Intake & Output 04/12 1600 04/12 0800 04/12 0000 Intake Total 480 600 Output Total 340 Balance 480 260 Intake, Oral 480 600 Output, Urine 340 Patient 88.479 kg Weight Weight Bed scale Measurement Method Physical Exam General Appearance: Alert, Oriented X3, Cooperative, No Acute Distress Cardiovascular: Regular Rate, Normal S1, Normal S2, No Murmurs Lungs: minimal scattered wheezing Abdomen: Normal Bowel Sounds, Soft, No Tenderness, No Masses Extremities: No Clubbing, No Cyanosis, No Edema, Normal Pulses Current Medications: Current Medications Sig/Boom Start time Last Medication Dose Route Stop Time Status Admin Albuterol Sulfate 3 ML BID 04/10 1234 DCD 04/12 INH 1055 Aspirin 81 MG DAILY 04/10 900 DCD 04/12 PO 0829 Atorvastatin Calcium 40 MG 1700 04/10 1700 DCD 04/11 PO 1632 Azithromycin 500 MG DAILY 04/11 900 DCD 04/12 PO 0829 Guaifenesin 600 MG Q12 04/10 900 DCD 04/11 PO 2009 Heparin Sodium 5,000 UNIT Q8 04/10 600 DCD (Porcine) SC Losartan Potassium 50 MG DAILY 04/10 900 DCD 04/12 PO 0829 Methylprednisolone 40 MG Q12 04/11 2100 DC 04/11 IV 04/11 2101 2010 Methylprednisolone 40 MG Q8 04/10 0600 DC 04/11 IV 1315 Nicotine 14 MG DAILY 04/10 900 DCD TOP Prednisone 40 MG DAILY 04/12 900 DCD 04/12 PO 0829 Assessment/Plan Assessment: 63 year old male with past medical history significant for moderate to severe COPD not on home oxygen (PFT 2012 Dr. Brown), CAD with h/o silent AR, reportedly negative cardiac catheterization (nonobstructive CAD?), abnormal stress test in 2014 with diffuse hypokinesis, HTN, HLD, and smoking presents with complaints of worsening upper respiratory infection with productive cough and negative chest x-ray, admitted for COPD exacerbation. COPD exacerbation: Recent sick contacts Afebrile without leukocytosis Symptoms worsening (cough/exertional dyspnea) despite outpatient amoxicillin Chest x-ray hyperinflation emphysematous changes without infiltrate/pneumonia Tapered solumedrol, currently 40mg prednisone plan to discharge on steroid taper TRC evaluation Azithromycin 500mg x 5 days Continue nebulized albuterol and ipatropium No hypoxic on room air Start spiriva, symbicort and mucinex 600mg po bid Counseled on smoking cessation, offered nicotine replacement therapy Outpatient follow up with Dr. Brown HFrEF: Left ventricular ejection fraction is estimated at 40-45%. Exercise nuclear stress test/Echocardiogram 2014 Abnormal study demonstrating fixed perfusion abnormalities as described above involving the inferior, anteroseptal, and apical ponce. No reversible perfusion abnormalities are noted. There is diffuse left ventricular hypokinesis which is most severe in the regions of the fixed perfusion abnormalities. The left ventricular chamber is mildly dilated and the left ventricular ejection fraction is moderately depressed. Normal left ventricular wall thickness. Left ventricular ejection fraction is estimated at 40-45%. Abnormal septal motion consistent with conduction defect. Stage 1 diastolic dysfunction. Mild left atrial dilatation. Patient has poor compliance Restart losartan, aspirin, and atorvastatin Patient should be started on beta shahla and aldactone given his exertional symptoms Consider long acting nitrate Reports orthopnea, proBNP 243, no pulmonary edema on chest x-ray Consider cardiology consultation if chest pain continues or develops elevated troponin HTN: Continue losartan HLD: Continue atorvastatin Heart healthy diet DVT ppx-ALPS, lovenox 40mg subcutaneous daily DNR/DNI Stable for discharge on azithromycin, prednisone, symbicort and spiriva. Counseled on smoking cessation. Follow up with Dr. Brown and Dr. Vasques Problem List: 1. COPD exacerbation Pain Ratin Pain Location: n/a Pain Goal: Pain 4 or less Pain Plan: prn Tomorrow's Labs & Rationales: none, discharge Cristhina OQUENDOKd 04/12/18 1057: Attending MD Review Statement Attending Statement Attending MD Statement: examined this patient, discuss w/resident/PA/WOOD HEEL ATTACHER, agreed w/resident/PA/WOOD HEEL ATTACHER, reviewed EMR data (avail), discussed with nursing, discussed with case mgmt, amended to note Attending Assessment/Plan: Patient seen and examined. No issues overnight reported by nursing staff. Remains afebrile and hemodynamically stable. Resting comfortably and not in any acute distress. Reports feeling better this morning. Denies cough. Denies shortness of breath with exertion. Denies chest pain. On examination he has adequate entry bilaterally with no significant wheezing. He is medically stable to be discharged today. He has been advised to follow-up with the pulmonology service as an outpatient. He continues to refuse any assistance with quitting tobacco use stated that he will try on his own. He has been provided referral to the COPD clinic as well.
[2018-04-12] MEDS ORDERED: ASPIRIN81 M4 PO (07:35)
[2018-04-12] MEDS ORDERED: AZITHROMYCIN500 M3 PO ×2 (08:11→09:44)
[2018-04-12] MEDS ORDERED: PREDNISONE10 M2 PO ×2 (08:11→09:44)
--- NOTE | 2018-04-12 08:13 | PN- Pulmonary ---
Subjective HPI/Critical Care Issues: Patient is comfortable on room air with improved shortness of breath Objective Current Medications: Current Medications Sig/Boom Start time Last Medication Dose Route Stop Time Status Admin Albuterol Sulfate 3 ML BID 04/10 1234 AC 04/11 INH 2138 Aspirin 81 MG DAILY 04/10 0900 AC 04/11 PO 0749 Atorvastatin Calcium 40 MG 1700 04/10 1700 AC 04/11 PO 1632 Azithromycin 500 MG DAILY 04/11 09 AC 04/11 PO 0750 Guaifenesin 600 MG Q12 04/10 900 AC 04/11 PO 2010 Heparin Sodium 5,000 UNIT Q8 04/10 600 AC (Porcine) SC Losartan Potassium 50 MG DAILY 04/10 900 AC 04/11 PO 0749 Methylprednisolone 40 MG Q12 04/11 2100 DC 04/11 IV 04/11 Methylprednisolone 40 MG Q8 04/10 600 DC 04/11 IV 1315 Nicotine 14 MG DAILY 04/10 900 AC TOP Prednisone 40 MG DAILY 04/12 09 AC PO Vital Signs & I&O Last 24 Hrs of Vitals and I&O: Vital Signs Date Time Temp Pulse Resp B/P B/P Pulse O2 O2 Flow FiO2 Mean Ox Delivery Rate 04/12 06 98.4 80 16 134/86 94 Room Air 04/11 2212 98.1 86 20 128/84 96 04/11 2140 95 Room Air Room Air 04/11 1600 Room Air 04/11 1358 97.9 79 20 136/70 95 Room Air 04/11 0836 94 Room Air Room Air Intake & Output 04/12 1600 04/12 0800 04/12 0000 Intake Total 480 600 Output Total 340 Balance 480 260 Intake, Oral 480 600 Output, Urine 340 Patient 195 lb Weight Weight Bed scale Measurement Method Room oxygen saturation 9495% exam of his chest shows somewhat diminished breath sounds are no wheezes or crackles or cardiac exam shows regular S1 and S2 without murmurs Impression/Plan Impression/Plan Impression/Plan: CC 3-year-old admitted with increased shortness breath secondary to COPD exacerbation now improved Recommendations: Continue prednisone taper. Refer to outpatient COPD clinic. Again counseled regarding the need for smoking cessation.
[2018-04-12 08:29] VITALS: BP 134/86
[2018-04-12] MEDS ORDERED: SPIRIVA18 MCG INH ×2 (08:38→09:44)
[2018-04-12] MEDS ORDERED: SYMBICORT 80-10.2 GM INH ×2 (08:38→09:44)
[2018-04-12] MEDS ORDERED: OMEPRAZOLE40 M1 PO ×2 (08:38→09:44)
--- NOTE | 2018-04-12 10:01 | Discharge Summary ---
Visit Information Visit Dates Admission Date: 04/10/18 Discharge Date: 04/12/18 Hospital Course Course Attending Physician: Kd Morrow MD Primary Care Physician: Renny Millan DO Hospital Course: 63 year old male with past medical history significant for severe COPD (not oxygen dependent), CAD with h/o silent TX, HFrEF, abnormal stress test in 2014 with diffuse hypokinesis, HTN, HLD, and smoking presented with one week ago of sore throat, rhinorrhea, and productive cough with thick yellow sputum, and exertional dyspnea without improvement after outpatient Augmentin and OTCs. He is a current smoker and typically smokes a pack a day, but since he has become sick, he cut down to 1/4 pack per day. He is also noncompliant with his home medications. In the ED, he was afebrile, without leukocytosis, and chest x-ray had no focal infiltrate suggestive of pneumonia. He was admitted for COPD exacerbation and treated with intravenous solumedrol and nebulized albuterol and ipatropium. Breathing treatments were continued, cough medicine was given, and steroids were transitioned to an oral prednisone taper on discharge. Pulmonology was consulted and recommended smoking cessation, spiriva and symbicort, of which the patient was given a free sample and new prescription. He should follow up with an outpatient with Dr. Brown. On the day, of discharge, the patient's exertional dyspnea, cough, and sputum were all significantly improved. He has follow up scheduled with Dr. Vasques of cardiology and his losartan, atorvastatin, and aspirin were continued. The patient was counseled on medication compliance. He may benefit from further medications for congestive heart failure although his proBNP was not extremely elevated at the time of admisssion. The patient was discharged with azithromycin, prednisone taper, symbicort and spiriva in addition to extensive counseling on smoking cessation. Allergies: Coded Allergies: NO KNOWN ALLERGIES (01/21/12) Significant Procedures: Exercise nuclear stress test/Echocardiogram 2014 Abnormal study demonstrating fixed perfusion abnormalities as described above involving the inferior, anteroseptal, and apical ponce. No reversible perfusion abnormalities are noted. There is diffuse left ventricular hypokinesis which is most severe in the regions of the fixed perfusion abnormalities. The left ventricular chamber is mildly dilated and the left ventricular ejection fraction is moderately depressed. Normal left ventricular wall thickness. Left ventricular ejection fraction is estimated at 40-45%. Abnormal septal motion consistent with conduction defect. Stage 1 diastolic dysfunction. Mild left atrial dilatation. Disposition Summary Disposition Principal Diagnosis: Acute exacerbation of COPD Bronchitis Smoking Additional Diagnosis: Severe COPD not oxygenn dependent Coronary artery disease with history of silent myocardial infarction Heart failure with reduced ejection fraction Abnormal stress test in 2015 with diffuse hypokinesis Hypertension Dyslipidemia Smoking Discharge Disposition: home or self care Discharge Instructions General Discharge Information Code Status: Do Not Resucitate/Intubat Patient's Diet: Heart healthy Patient's Activity: As tolerated Follow-Up Instructions/Appts: Please follow up with your primary care physician, flight steward (Dr. Brown), and animal services officer (Dr. Vasques), after discharge. Medications at Discharge Discharge Medications: Stop taking the following medications: Amoxicillin/Clavulanate Potass (Amox-Clav 875-125 MG Tablet) 875 MG-125 MG TABLET ORAL TWICE DAILY Qty = 20 Continue taking these medications: Atorvastatin Calcium (Atorvastatin Calcium) 40 MG TABLET 1 Tablet ORAL DAILY Qty = 30 Comments: Last Taken:04/11/18 Time:4:30 pm Losartan Potassium (Losartan Potassium) 50 MG TABLET 1 Tablet ORAL DAILY Qty = 30 Comments: Last Taken:04/12/18 Time:0830 am Aspirin (Aspirin*) 81 MG TAB.CHEW 1 Tablet ORAL DAILY Comments: Last Taken:04/12/18 Time:0900 am Start taking the following new medications: Prednisone (Prednisone) 10 MG TABLET 1 Tablet ORAL As Directed Qty = 30 No Refills Instructions: 4 TABS X3DAYS, 3 TABS X3DAYS, 2 TABS X3DAYS, 1 X3DAYS. Comments: Last Taken:04/12/18 Time:0830 AM Omeprazole (Omeprazole) 40 MG CAPSULE.DR 1 Capsule ORAL DAILY Qty = 30 No Refills Instructions: . Comments: DID NOT TAKE IN HOSPITAL Tiotropium Hoagland (Spiriva) 18 MCG CAP.W.DEV 1 Capsule Inhale through mouth DAILY Qty = 30 No Refills Instructions: . Comments: DID NOT TAKE IN HOSPITAL Azithromycin (Azithromycin) 500 MG TABLET 1 Tablet ORAL DAILY Qty = 3 No Refills Instructions: . Comments: Last Taken:04/12/18 Time:0830 am Budesonide/Formoterol Fumarate (Symbicort 160-4.5 Mcg Inhaler) 160 MCG-4.5 MCG/ ACTUATION HFA.AER.AD 2 Puff Inhale through mouth TWICE DAILY Qty = 1 No Refills Comments: HAS NOT STARTED Copies To: Naveen Brown MD; Naveen Vasques MD, V.; Renny Millan DO Attending MD Review Statement Documenting Attending: Kd Morrow MD Other Findings: Discharged in stable condition. Instructions: . Comments: DID NOT TAKE IN HOSPITAL Tiotropium Hoagland (Spiriva) 18 MCG CAP.W.DEV 1 Capsule Inhale through mouth DAILY Qty = 30 No Refills Instructions: . Comments: DID NOT TAKE IN HOSPITAL Azithromycin (Azithromycin) 500 MG TABLET 1 Tablet ORAL DAILY Qty = 3 No Refills Instructions: . Comments: Last Taken:04/12/18 Time:0830 am Budesonide/Formoterol Fumarate (Symbicort 160-4.5 Mcg Inhaler) 160 MCG-4.5 MCG/ ACTUATION HFA.AER.AD 2 Puff Inhale through mouth TWICE DAILY Qty = 1 No Refills Comments: HAS NOT STARTED Copies To: Naveen Brown MD; Naveen Vasques MD, V.; Renny Millan DO
[2018-04-12] MEDS ORDERED: SYMBICORT 16010.2 GM INH (10:14)
== END 2018-04-12 12:17 | DRG 191 ==
LOC: ERH 22:21 → ERHI 04-10 00:08 → ENRESERV 04-10 01:58 → 2NA 04-10 02:10 → ENPENDDIS 04-12 10:09 → ENTRNSPT 04-12 11:58 → 2NA 04-12 12:17 → EDTRNSPTSTS 04-12 12:44 → EDTRNSPT 04-12 12:44 → CMPTRNSPT 04-12 13:06
PROVIDERS: Internal Medicine; Preventive Medicine Public Health & General Preventive Medicine
DX: J44.0 Chronic obstructive pulmonary disease with (acute) lower respiratory infection (principal); I50.22 Chronic systolic (congestive) heart failure; J20.9 Acute bronchitis, unspecified; F17.210 Nicotine dependence, cigarettes, uncomplicated; J44.1 Chronic obstructive pulmonary disease with (acute) exacerbation; I11.0 Hypertensive heart disease with heart failure; F10.20 Alcohol dependence, uncomplicated; I25.2 Old myocardial infarction; E78.5 Hyperlipidemia, unspecified; F17.200 Nicotine dependence, unspecified, uncomplicated; Z91.14 Patient's other noncompliance with medication regimen; Z66 Do not resuscitate; I25.118 Atherosclerotic heart disease of native coronary artery with other forms of angina pectoris
CPT/HCPCS: 2NASP; 36592; 71046; 81001; 82436; 87040; 87070; 93005; 93010; 96374; J0456; J1644; J2920; J2930; J3490; J7040